=== PATIENT | female | born 1990 | race African-American/Black ===

== ENCOUNTER 2022-12-08 13:55 | Emergency (ER) | payer OTHER ==
[~2022-12-08] VITALS: Ht 162.6 cm; Wt 68.0 kg
[2022-12-08 14:37] VITALS: BP 151/86; PULSE 89; RESP 18; TEMP 97; O2SAT 98
[2022-12-08] MEDS ORDERED: FLUORESCEIN OPTH STRIP 1 MG OP ONE (14:50)
[2022-12-08] MEDS ORDERED: TETRACAINE HCL/PF 0.5% OPTH 4 ML BTL OP ONE ×2 (14:50→16:20)
[2022-12-08 17:21] VITALS: BP 124/76; PULSE 87; RESP 16; TEMP 97.8; O2SAT 98
== END 2022-12-08 17:23 | disposition home or self-care (01) ==
LOC: MED 13:55
DX: H57.11 Ocular pain, right eye (principal); Z79.899 Other long term (current) drug therapy
CPT/HCPCS: 99283